=== PATIENT | female | born 1930 | race Caucasian/White ===

== ENCOUNTER 2018-04-24 19:48 | Inpatient (IN) | payer OTHER, MEDICAID ==
[~2018-04-24] VITALS: Ht 162.6 cm; Wt 72.6 kg
[2018-04-24 19:48] VITALS: BP_SYST 151
[~2018-04-24 19:48] MED LIST: ACET-73 PO; ALBU2.5V7 INH; BACL10TA PO; BUSP5TAB3 PO; CYAI1000 IM; DICL100G16 TP; FOLI-43 PO; GALA8TAB3 PO; GUAI240S2 PO; HYDR-1189 PO; LEVO125T PO; MAGN400O4 PO; METO25TA3 PO; NEU400 PO; PHEDM120 PO; PRO40 PO; VALS80TA2 PO
[2018-04-24] MEDS ORDERED: NYSTATIN 30 GM TOPICAL CREAM TP ONE (21:15)
[2018-04-24] MEDS ORDERED: GABAPENTIN 100 MG CAPSULE PO ONE (21:15)
[2018-04-24] MEDS ORDERED: METOPROLOL SUCCINATE 25 MG TAB.SR.24H (TOPROL XL) PO ONE ×2 (21:15→22:14)
[2018-04-24] MEDS ORDERED: GALANTAMINE HYDROBROMIDE 4 MG TABLET PO ONE (21:15)
[2018-04-24] MEDS ORDERED: GALANTAMINE HYDROBROMIDE 4 MG TABLET ONE (22:13)
[2018-04-24] MEDS ORDERED: GABAPENTIN 400 MG CAPSULE ONE (22:14)
[2018-04-24 23:28] VITALS: BP_SYST 135
[2018-04-25 00:57] VITALS: BP_SYST 126
[2018-04-25 08:00] VITALS: BP_SYST 144
[2018-04-25] MEDS ORDERED: cefTRIAXone 1 GM IVPB PREMIX 50 ML IV SCH (12:00)
[2018-04-25] MEDS ORDERED: HYDROcodone/ACETAMIN 5-325 MG TAB (NORCO/ VICODIN) PO PRN (12:00)
[2018-04-25] MEDS ORDERED: MILK OF MAGNESIA 30 ML UDC PO PRN (12:00)
[2018-04-25] MEDS ORDERED: NACL 0.9% 1,000 ML IV SCH (12:00)
[2018-04-25] MEDS ORDERED: METOPROLOL SUCCINATE 25 MG TAB.SR.24H (TOPROL XL) PO SCH (12:00)
[2018-04-25] MEDS ORDERED: PANTOPRAZOLE SODIUM 40 MG TAB PO SCH (12:00)
[2018-04-25] MEDS ORDERED: FOLIC ACID 1 MG TABLET PO SCH (12:00)
[2018-04-25] MEDS ORDERED: PROMETHAZINE-DM 6.25 MG-15 MG/5 ML UDC PO SCH (12:00)
[2018-04-25 12:30] VITALS: BP_SYST 135
[2018-04-25] MEDS ORDERED: FOLIC ACID 1 MG TABLET PO ONE (12:30)
[2018-04-25] MEDS ORDERED: METOPROLOL SUCCINATE 25 MG TAB.SR.24H (TOPROL XL) PO ONE (12:30)
[2018-04-25] MEDS ORDERED: PANTOPRAZOLE SODIUM 40 MG TAB PO ONE (13:15)
[2018-04-25] MEDS: GABAPENTIN 400 MG CAPSULE PO SCH ×2 (13:25→17:46)
[2018-04-25 16:30] VITALS: BP_SYST 116
[2018-04-25 16:45] VITALS: BP_SYST 116
[2018-04-25 18:05] VITALS: BP_SYST 116
[2018-04-26] MEDS ORDERED: LEVOTHYROXINE SODIUM 0.125 MG TABLET PO SCH (07:00)
[2018-04-26] MEDS ORDERED: GALANTAMINE HYDROBROMIDE 4 MG TABLET PO SCH (09:00)
[2018-04-26] MEDS ORDERED: VALSARTAN 80 MG TABLET (DIOVAN) PO SCH (09:00)
[2018-05-25] MEDS ORDERED: CYANOCOBALAMIN 1000 MCG/ML VIAL IM SCH (06:30)
== END 2018-04-25 18:28 | DRG 690 ==
LOC: SED 19:48 → STU 22:44
PROVIDERS: ADMIT Internal Medicine Hospice and Palliative Medicine; ATTEND Internal Medicine Hospice and Palliative Medicine
DX: N39.0 Urinary tract infection, site not specified (principal); R41.0 Disorientation, unspecified; G30.9 Alzheimer's disease, unspecified; F02.80 Dementia in other diseases classified elsewhere, unspecified severity, without behavioral disturbance, psychotic disturbance, mood disturbance, and anxiety; Z66 Do not resuscitate; G62.9 Polyneuropathy, unspecified; W18.39XA Other fall on same level, initial encounter; Y93.89 Activity, other specified; Y92.89 Other specified places as the place of occurrence of the external cause; Y99.8 Other external cause status; Z85.3 Personal history of malignant neoplasm of breast; Z87.440 Personal history of urinary (tract) infections; Z90.710 Acquired absence of both cervix and uterus
CPT/HCPCS: 87081; 87086; 99285; J0696; J7030

== ENCOUNTER 2018-11-28 19:36 | Inpatient (IN) | payer OTHER, MEDICAID ==
[~2018-11-28] VITALS: Ht 157.5 cm; Wt 81.6 kg
[~2018-11-28 19:36] MED LIST changes: -DICL100G16 TP; +DICL100G19 TP; -MAGN400O4 PO; +MOM PO
[2018-11-28 19:39] VITALS: BP_SYST 112
[2018-11-28] MEDS ORDERED: LIDO76.5 TP (19:57)
[2018-11-28] MEDS ORDERED: MOM PO (19:57)
[2018-11-28] MEDS ORDERED: CAT.1 PO (19:57)
[2018-11-28] MEDS ORDERED: FLEETMO RC (19:57)
[2018-11-28] MEDS ORDERED: LOSA25TA3 PO (19:57)
[2018-11-28 21:12] LABS: BASOPHILS % (AUTO) 0.7 % (0.0-2.0); EOSINOPHILS # (AUTO) 0.1 K/uL (0.0-0.4); EOSINOPHILS % (AUTO) 1.2 % (0.0-4.0); HEMATOCRIT 41.5 % (36-48); HEMOGLOBIN 13.1 g/dL (12.0-16.0); LYMPHOCYTES # (AUTO) 2.1 K/uL (1.0-5.5); LYMPHOCYTES % (AUTO) 32.1 % (20.5-51.5); MEAN CORPUSCULAR HEMOGLOBIN 26 pg (27-31); MEAN CORPUSCULAR HGB CONC 32 % (32-36); MEAN CORPUSCULAR VOLUME 83 fL (79.0-98.0); MONOCYTES # (AUTO) 0.5 K/uL (0.0-1.0); MONOCYTES % (AUTO) 8.2 % (1.7-9.3); NEUTROPHILS # (AUTO) 3.7 K/uL (1.8-7.7); NEUTROPHILS % (AUTO) 57.8 % (40.0-70.0); PLATELET COUNT (AUTO) 250 K/uL (130-430); RED BLOOD CELL COUNT(AUTO) 4.97 MIL/uL (4.2-6.2); RED CELL DISTRIBUTION WIDTH 16.4 % (9.0-15.0); WHITE BLOOD COUNT (AUTO) 6.4 K/uL (4.8-10.8)
[2018-11-28 21:45] LABS: ANION GAP 6 (5-15); CALCIUM 9.4 mg/dL (8.4-11.0); CHLORIDE 104 mmol/L (98-107); GLUCOSE 134 mg/dL (70-99); SODIUM SERUM 136 mmol/L (136-145); UREA NITROGEN, BLOOD 33 mg/dL (8-21)
[2018-11-28 21:50] LABS: ALANINE AMINOTRANSFERASE 21 U/L (12-78); ALBUMIN 3.1 g/dL (3.4-4.8); ASPARTATE AMINOTRANSFERASE 23 U/L (10-37); TOTAL BILIRUBIN 0.3 mg/dL (0.0-1.0)
[2018-11-28 22:36] LABS: BILIRUBIN,URINE NEGATIVE (NEGATIVE); CLARITY/URINE SL HAZY (CLEAR); COLOR,URINE YELLOW (YELLOW); GLUCOSE,URINE NEGATIVE (NEGATIVE); KETONES,URINE NEGATIVE (NEGATIVE); LEUKOCYTE ESTERASE ,URINE 1+ (NEGATIVE); NITRITE, URINE POSITIVE (NEGATIVE); PH,URINE 5.5 (5.0-8.0); PROTEIN URINE NEGATIVE (NEGATIVE)
[2018-11-28 22:40] LABS: BLOOD, URINE TRACE (NEGATIVE)
[2018-11-28 23:06] LABS: BACTERIA,URINE MODERATE /HPF (None Seen)
[2018-11-28] MEDS ORDERED: cefTRIAXone 1 GM IVPB PREMIX 50 ML IV ONE (23:15)
[2018-11-29] VITALS (7 sets, daily range): BP systolic 117–147
[2018-11-29] MEDS ORDERED: KETOROLAC TROMETHAMINE 30 MG VIAL IVP ONE (00:15)
[2018-11-29] MEDS ORDERED: cefTRIAXone 1 GM IVPB PREMIX 50 ML IV ONE (01:39)
[2018-11-29] MEDS: IPRATROPIUM/ALBUTEROL SULFATE 3 ML AMPUL.NEB (DUONEB) INH SCH ×4 (07:19→19:48)
[2018-11-29] MEDS ORDERED: ASPIRIN 81 MG TABLET(ECOTRIN) PO ONE (19:00)
[2018-11-29] MEDS ORDERED: ACETAMINOPHEN 325 MG TABLET PO PRN (19:00)
[2018-11-29] MEDS ORDERED: KETOROLAC TROMETHAMINE 15 MG VIAL IVP PRN (19:00)
[2018-11-29] MEDS: KCL 20 mEq in D5/0.45NS 1000mL 1,000 ML IV SCH (20:12)
[2018-11-29] MEDS: CEFEPIME 1 GM in D5W 50 ML IV SCH (20:21)
[2018-11-29] MEDS: GABAPENTIN 300 MG CAPSULE PO SCH (20:34)
[2018-11-29] MEDS: MIRTAZAPINE 15 MG TABLET PO SCH (20:34)
[2018-11-29] MEDS: MAGNESIUM OXIDE 400 MG TABLET PO SCH (20:34)
[2018-11-29] MEDS: MEGESTROL ACETATE 400 MG/10 ML UDC PO SCH (20:35)
[2018-11-29] MEDS: ENOXAPARIN SODIUM 30 MG/0.3 ML SYRINGE SUBCUT SCH (20:37)
[2018-11-29] MEDS: VITS A AND D/WHITE PET/LANOLIN 113.4 GM TUBE TP SCH (21:00)
[2018-11-29] MEDS: cefTRIAXone 1 GM IVPB PREMIX 50 ML IV SCH (21:36)
[2018-11-30 08:00] VITALS: BP_SYST 127
[2018-11-30] MEDS: MEGESTROL ACETATE 400 MG/10 ML UDC PO SCH ×2 (09:11→21:54)
[2018-11-30] MEDS: MAGNESIUM OXIDE 400 MG TABLET PO SCH ×2 (09:11→21:54)
[2018-11-30] MEDS: GABAPENTIN 300 MG CAPSULE PO SCH ×3 (09:11→21:54)
[2018-11-30] MEDS: VITS A AND D/WHITE PET/LANOLIN 113.4 GM TUBE TP SCH ×2 (09:12→21:53)
[2018-11-30] MEDS: IPRATROPIUM/ALBUTEROL SULFATE 3 ML AMPUL.NEB (DUONEB) INH SCH ×4 (11:00→20:35)
[2018-11-30 12:14] VITALS: BP_SYST 136
[2018-11-30 12:14] LABS: ANION GAP 4 (5-15); CALCIUM 8.1 mg/dL (8.4-11.0); CHLORIDE 106 mmol/L (98-107); GLUCOSE 154 mg/dL (70-99); MEAN CORPUSCULAR HGB CONC 33 % (32-36); MEAN CORPUSCULAR VOLUME 84 fL (79.0-98.0); POTASSIUM 4.5 mmol/L (3.5-5.1); SODIUM SERUM 137 mmol/L (136-145); UREA NITROGEN, BLOOD 25 mg/dL (8-21)
[2018-11-30 12:22] LABS: HEMOGLOBIN 13.3 g/dL (12.0-16.0); RED BLOOD CELL COUNT(AUTO) 4.88 MIL/uL (4.2-6.2); WHITE BLOOD COUNT (AUTO) 5.5 K/uL (4.8-10.8)
[2018-11-30 12:23] LABS: BASOPHILS % (AUTO) 0.6 % (0.0-2.0); EOSINOPHILS # (AUTO) 0.1 K/uL (0.0-0.4); EOSINOPHILS % (AUTO) 2.1 % (0.0-4.0); HEMATOCRIT 40.7 % (36-48); LYMPHOCYTES # (AUTO) 1.7 K/uL (1.0-5.5); LYMPHOCYTES % (AUTO) 31.5 % (20.5-51.5); MEAN CORPUSCULAR HEMOGLOBIN 27 pg (27-31); MONOCYTES # (AUTO) 0.5 K/uL (0.0-1.0); MONOCYTES % (AUTO) 8.3 % (1.7-9.3); NEUTROPHILS # (AUTO) 3.2 K/uL (1.8-7.7); NEUTROPHILS % (AUTO) 57.5 % (40.0-70.0); PLATELET COUNT (AUTO) 236 K/uL (130-430); RED CELL DISTRIBUTION WIDTH 16.4 % (9.0-15.0)
[2018-11-30] MEDS: KCL 20 mEq in D5/0.45NS 1000mL 1,000 ML IV SCH (13:35)
[2018-11-30 16:00] VITALS: BP_SYST 129
[2018-11-30] MEDS: CEFEPIME 1 GM in D5W 50 ML IV SCH (19:55)
[2018-11-30 20:03] VITALS: BP_SYST 132
[2018-11-30] MEDS: cefTRIAXone 1 GM IVPB PREMIX 50 ML IV SCH (21:54)
[2018-11-30] MEDS: MIRTAZAPINE 15 MG TABLET PO SCH (21:54)
[2018-11-30] MEDS: ENOXAPARIN SODIUM 30 MG/0.3 ML SYRINGE SUBCUT SCH (21:58)
[2018-12-01] MEDS: KCL 20 mEq in D5/0.45NS 1000mL 1,000 ML IV SCH (04:14)
[2018-12-01] MEDS: IPRATROPIUM/ALBUTEROL SULFATE 3 ML AMPUL.NEB (DUONEB) INH SCH ×3 (07:31→16:08)
[2018-12-01] MEDS: GABAPENTIN 300 MG CAPSULE PO SCH ×2 (08:13→16:23)
[2018-12-01] MEDS: MEGESTROL ACETATE 400 MG/10 ML UDC PO SCH (08:13)
[2018-12-01] MEDS: MAGNESIUM OXIDE 400 MG TABLET PO SCH (08:13)
[2018-12-01 08:14] VITALS: BP_SYST 142
[2018-12-01] MEDS: VITS A AND D/WHITE PET/LANOLIN 113.4 GM TUBE TP SCH (08:14)
[2018-12-01 12:17] VITALS: BP_SYST 158
[2018-12-01] MEDS ORDERED: METOPROLOL TARTRATE 50 MG TABLET PO ONE (16:00)
[2018-12-01 16:16] VITALS: BP_SYST 140
[2018-12-01 17:12] VITALS: BP_SYST 138
[2018-12-01] MEDS ORDERED: METOPROLOL TARTRATE 50 MG TABLET PO SCH (21:00)
== END 2018-12-01 18:07 | DRG 682 ==
LOC: SED 19:36 → SMU 23:45
PROVIDERS: ADMIT Family Medicine; ATTEND Family Medicine
DX: N17.9 Acute kidney failure, unspecified (principal); G93.41 Metabolic encephalopathy; N39.0 Urinary tract infection, site not specified; E44.1 Mild protein-calorie malnutrition; E86.0 Dehydration; M19.90 Unspecified osteoarthritis, unspecified site; B96.20 Unspecified Escherichia coli [E. coli] as the cause of diseases classified elsewhere; I10 Essential (primary) hypertension; G30.9 Alzheimer's disease, unspecified; F02.80 Dementia in other diseases classified elsewhere, unspecified severity, without behavioral disturbance, psychotic disturbance, mood disturbance, and anxiety; Z79.899 Other long term (current) drug therapy; Z85.3 Personal history of malignant neoplasm of breast; Z90.11 Acquired absence of right breast and nipple; Z68.32 Body mass index [BMI] 32.0-32.9, adult
CPT/HCPCS: 36415; 71045; 80048; 80053; 81000-TC; 83605; 85025; 87040-TC; 87086; 87186-TC; 93005; 94640; 94760; 96374; 97110-GP; 97530-GP; 99285; J0692; J0696; J1650; J1885; J7060; J7620